=== PATIENT | male | born 1990 | race African-American/Black ===

== ENCOUNTER 2021-01-08 12:38 | Emergency (ER) | payer OTHER ==
[2021-01-08 12:46] VITALS: BP 112/62; PULSE 71; TEMP 98.3; BMI 24.2
[2021-01-08] MEDS ORDERED: CYCLOBENZAPRINE HCL 10 MG TABLET (FP) PO ONE (13:04)
[2021-01-08] MEDS ORDERED: KETOROLAC TROMETHAMINE 30 MG/1 ML VIAL IM ONE (13:04)
[2021-01-08] MEDS ORDERED: KETOROLAC TROMETHAMINE 30 MG/1 ML VIAL ONE (13:06)
== END 2021-01-08 13:44 | disposition home or self-care (01) ==
LOC: FER 12:38
PROC: 3E0233Z Introduction of Anti-inflammatory into Muscle, Percutaneous Approach (ICD-10-PCS; principal; 2021-01-08)
DX: S39.011A Strain of muscle, fascia and tendon of abdomen, initial encounter (principal); X50.0XXA Overexertion from strenuous movement or load, initial encounter
CPT/HCPCS: 99285-25